=== PATIENT | female | born 1965 | race Caucasian/White ===

== ENCOUNTER 2020-05-30 23:10 | Emergency (ER) | payer MEDICARE, OTHER ==
[~2020-05-30 23:10] MED LIST: EPINEPHrine 1 MG/10 ML Abboject SYRINGE ONE; EPINEPHrine 1 MG/ML AMP ONE; Lidocaine 2 gm/D5W 500ML PREMIX BAG ONE; Sodium Bicarb 50 MEQ/50 ML Abboject 8.4% SYRINGE ONE
--- NOTE | 2020-05-30 23:33 | RAD ---
XR Chest 1 View Portable HISTORY: Respiratory failure FINDINGS: There is an endotracheal tube with tip at the level of the ty. The heart size is normal. The lung s are expanded with diffuse patchy infiltrates. No pneumothoraces or pleural effusions are seen. Discussed over the telephone with ER physician Dr. Ap Adame at 11:30 PM
[2020-05-30 23:36] LABS: Mean Corpuscular HGB CONC 31.9 g/dL (32.0-36.0); Mean Platelet Volume 8.9 fL (7.4-10.4); Platelet Count 250 thou/uL (130-400); RBC Distribution Width 12.8 % (11.5-14.5); Red Blood Cell (RBC) Count 4.68 mill/uL (4.20-5.40); White Blood Cell (WBC) Count 12.7 thou/uL (4.8-10.8)
[2020-05-30 23:42] LABS: INR-International Normal Ratio 1.1; Prothrombin Time 13.8 sec (12.0-14.7)
[2020-05-30 23:43] LABS: PTT 32.3 sec (22.9-36.1)
[2020-05-30] MEDS ORDERED: EPINEPHrine 4 MG in Dextrose 5% in Water 250 ML IV SCH (23:45)
[2020-05-30 23:49] LABS: Actual Bicarbonate (HCO3a) 16.6 mEq/L (22-28); Analyzer IN Cardio ER; Base Excess (BEa) -14.5 mEq/L (-2.0 to +3.0); Calcium, Ionized (arterial) 1.21 mmol/L (1.12-1.30); Carboxyhemoglobin (COHb) 0.5 gm% (0.0-3.0); Hemoglobin (Hb) 14.3 g/dL (12.0-16.0); Potassium - ABG Lab 3.18 mmol/L (3.70-5.30)
[2020-05-30 23:51] LABS: D-Dimer Test 4.04 *mcg/mL (0.27-0.43)
[2020-05-30 23:51] LABS: ALT (SGPT) 16 U/L (8-55); AST (SGOT) 20 U/L (5-34); Albumin 4.3 g/dL (3.5-5.0); Alkaline Phosphatase 89 U/L (40-110); Anion Gap 18 mmol/L (10-20); BUN (Urea Nitrogen) 18 mg/dL (9.8-20.1); Bilirubin, Total 0.2 mg/dL (0.2-1.2); CK (CPK) 202 U/L (29-168); Calc. Creatinine Clearance 0 mL/min (70-130); Calcium 8.8 mg/dL (7.8-10.44); Carbon Dioxide 22 mmol/L (22-29); Chloride 104 mmol/L (98-107); Estimated GFR-MDRD 74; Globulin 3.4 g/dL (2.4-3.5); Lipase 14 U/L (8-78); Potassium 4.4 mmol/L (3.5-5.1); Protein, Total 7.7 g/dL (6.0-8.3); Sodium 140 mmol/L (136-145)
[2020-05-30 23:55] LABS: Glucose 162 mg/dL (70-105)
[2020-05-31] MEDS ORDERED: Norepinephrine 8 MG/0.9% NS 250 ML ONE (00:16)
[2020-05-31 00:23] LABS: Lymphocytes 45 % (21-51); MDiff Complete? YES; Monocytes 7 % (0-10); Neutrophil 48 % (42-75); Platelet Morphology Comment Appears Adequate; RBC Morphology Normal
[2020-05-31] MEDS ORDERED: DOPamine 400 MG/D5W 250 ML 250 ML ONE (00:48)
[2020-05-31 00:53] LABS: CO2 Tension 61.5 mmHg (35.0-45.0); O2 Tension (PaO2), arterial 58.5 mmHg (80.0-100.0); pH, Arterial 7.05 (7.35-7.45)
[2020-05-31 00:55] LABS: ALV-art Gradient 577.625 (0-20)
[2020-05-31 00:57] LABS: Actual Bicarbonate (HCO3a) 13.8 mEq/L (22-28); Analyzer IN Cardio ER; Base Excess (BEa) -18.4 mEq/L (-2.0 to +3.0); Calcium, Ionized (arterial) 1.07 mmol/L (1.12-1.30); Carboxyhemoglobin (COHb) 0.4 gm% (0.0-3.0); Hemoglobin (Hb) 14.8 g/dL (12.0-16.0); O2 Tension (PaO2), arterial 61.1 mmHg (80.0-100.0); Potassium - ABG Lab 3.07 mmol/L (3.70-5.30)
[2020-05-31 00:58] LABS: CO2 Tension 60.7 mmHg (35.0-45.0); Puncture Site R RADIAL; pH, Arterial 6.98 (7.35-7.45)
[2020-05-31 00:59] LABS: ALV-art Gradient 576.025 (0-20)
--- NOTE | 2020-05-31 02:41 | HP ---
REASON FOR ADMISSION: Cardiac arrest. HISTORY OF PRESENT ILLNESS: This is a 55-year-old female patient brought by EMS after found to be in PEA and underwent resuscitative measures with return of spontaneous circulation in the ER. At home and earlier before, she lost consciousness. She informed her daughters that she has been having an explosive headache and then lost consciousness earlier. In the past couple of months, she has been having dizziness, so her primary care physician, who diagnosed her with vertigo did give her antibiotics. Recently, she did report chest pain described as pressure in nature, as if someone is sitting on her chest according to the patient, as per her daughters. PAST MEDICAL HISTORY: 1. High blood pressure. 2. High cholesterol. 3. Morbid obesity. 4. History of bowel obstruction, post multiple surgeries, colostomy, reversal of colostomy and mesh placement. Last hospitalization 10 years ago. SOCIAL HISTORY: She does not smoke. Does not drink alcohol. FAMILY HISTORY: Noncontributory. ALLERGIES: NO NOTE OF ANY DRUG ALLERGY. REVIEW OF SYSTEMS: Not obtained. She is intubated. PHYSICAL EXAMINATION: GENERAL: She is intubated, not sedated, but not responding. VITAL SIGNS: Her blood pressure is 60/54, heart rate 130, low temperature on a Tarah Hugger. HEENT: Head is nontraumatic. Pupils dilated and equal bilaterally. NECK: Appears to be supple. HEART: S1 and S2, regular. No murmur. No gallops. No friction rubs. No displacement of PMI. LUNGS: Good air entry bilaterally. Bowel sounds are positive. ABDOMEN: Appears to be soft. EXTREMITIES: No lower extremity edema. NEUROLOGIC: Unable to fully assess. LABORATORY DATA: Blood work shows WBC of 12.7, hemoglobin 14, platelets of 250. INR 1.1. D-dimer 4.04. ABG shows pH of 6.98, pCO2 of 60.7, bicarb of 13.8, sodium 140, potassium 4.4, bicarb of 22, creatinine 0.8. CK 202, troponin 0.028. BNP 252.9. A chest x-ray shows expanded lungs with diffuse patchy infiltrate. EKG shows sinus tachycardia. ASSESSMENT AND PLAN: This is a 55-year-old female patient, who for the past couple of months has been dizzy and recently did complain of heaviness in her chest and tonight she had sudden onset of explosive headache, then lost consciousness, found in PEA, received CPR, then intubated with return of spontaneous circulation, found to be in sinus tachycardia, at some point developed ventricular fibrillation, did get shocked once. She did receive tPA for presumed pulmonary embolism. Currently on Levophed, dopamine, and epinephrine, but still hypotensive. She is currently intubated on 100% FiO2, but still pulse ox is around 70%. It is not clear what was the initiating factor of her cardiac and respiratory arrest. It is presumably a massive pulmonary embolism versus cardiac event versus intracranial bleed. I did have discussion with her two daughters, who are the decision makers and I told them about the futility of our measure since she is maximized on pressors and she is intubated, but still very hypotensive and hypoxic, and in view of all the sequence of events, it is less likely that she will recover, her prognosis is very grim. They asked me to continue doing what we are doing until they are able to fully assimilate what happened and make a decision about whether to continue versus withdraw care. The patient will be admitted to CCU. We will continue with pressors. She is unstable to be taken to the CAT scan to rule out PE or to scan her head. I have explained that to the daughters and they are in understanding and agreement. One hour of critical care time was spent to manage this patient. Job ID: [id number]
--- NOTE | 2020-06-06 14:33 | EKG ---
Test Reason : Blood Pressure : / mmHG Vent. Rate : 106 BPM Atrial Rate : 106 BPM P-R Int : 182 ms QRS Dur : 092 ms QT Int : 372 ms P-R-T Axes : 053 -36 153 degrees QTc Int : 494 ms Sinus tachycardia Possible Left atrial enlargement Left axis deviation Marked ST abnormality, possible inferior subendocardial injury Marked ST abnormality, possible anterolateral subendocardial injury Abnormal ECG Confirmed by ANIL SHEPARD, DEQUAN Piña ([id number]), photography editor JALYN RICH ([id number]) on 06/06/2020 2:32:56 PM Referred By: Confirmed By:DEQUAN MA MD
== END 2020-05-31 02:32 | disposition expired ==
LOC: ERS 23:10 → EDBD 23:10 → ERS 05-31 02:32
DX: I46.9 Cardiac arrest, cause unspecified (principal); R09.02 Hypoxemia; K21.9 Gastro-esophageal reflux disease without esophagitis; E78.5 Hyperlipidemia, unspecified; I10 Essential (primary) hypertension; E66.9 Obesity, unspecified
CPT/HCPCS: 71045; 80053; 82550; 82805; 83690; 83880; 84484; 85025; 85379; 85610; 85730; 93005; 94002; 94760; J2997; 31500; 36415; 92950; 96365; 96366; 96367; 96368; 96374; 96375; 96376; J0171; J1265; J2001; J7070